=== PATIENT | male | born 2000 | race Caucasian/White ===

== ENCOUNTER 2018-03-29 14:06 | Emergency (ER) | payer SELFPAY ==
[2018-03-29 14:26] VITALS: BP 121/64; PULSE 66; RESP 13; TEMP 36.9; O2SAT 99
--- NOTE | 2018-03-29 15:02 | ED_ITS ---
HPI - Dental/Oral <LAURIE Leonardo - Last Filed: 03/29/18 22:26> General Chief complaint: Dental/Oral Stated complaint: SWELLING AND PAIN IN MOUTH Time Seen by Provider: 03/29/18 15:06 History of Present Illness HPI Narrative: Healthy 17-year-old male here for complaint of pain and redness to his gums along his posterior right lower gum line over the past few days. He denies any trauma to the area. He denies any fevers or chills. He does not have a dentist at this time. He denies any drainage from the area. He is able to open and close mouth without any complications. He has no complications with swallowing or maintaining secretions. No other complaints or concerns. He reports increased pain while eating. He denies any relievers of the pain. Related Data Previous Rx's Medication Instructions Recorded clindamycin HCl 300 mg PO TID #30 cap 03/29/18 hydrocodone-acetaminophen [[place]] 1 tab PO Q6H PRN #10 tab 03/29/18 Review of Systems <LAURIE Leonardo - Last Filed: 03/29/18 22:26> Constitutional Denies chills, Denies fever(s), Denies lethargy and Denies weakness Eyes Denies change in vision, Denies eye discharge, Denies irritation and Denies loss of vision ENT Ears, Nose, Mouth, and Throat: Reports dental pain Cardiovascular Denies chest pain, Denies irregular heart rhythm, Denies lightheadedness, Denies palpitations, Denies dyspnea, Denies dyspnea on exertion and Denies orthopnea Respiratory Denies cough, Denies dyspnea, Denies dyspnea on exertion and Denies wheezing Gastrointestinal Gastrointestinal: Denies abdominal pain, Denies change in bowel habits, Denies diarrhea, Denies nausea and Denies vomiting Genitourinary Denies hematuria, Denies flank pain, Denies urinary incontinence and Denies urinary urgency Musculoskeletal Denies back pain, Denies muscle weakness, Denies numbness and Denies tingling Integumentary/Breasts Denies pruritus, Denies erythema, Denies rash and Denies wounds Neurologic Denies confusion, Denies loss of vision, Denies numbness, Denies tingling and Denies weakness Psychiatric Denies anxiety, Denies confusion, Denies depression, Denies homicidal ideation and Denies suicidal ideation Endocrine Denies palpitations Hematologic/Lymphatic Denies easy bruising Allergic/Immunologic Denies wheezing Exam <LAURIE Leonardo - Last Filed: 03/29/18 22:26> Initial Vital Signs Initial Vital Signs: Vital Signs Temperature 98.4 F 03/29/18 14:26 Pulse Rate 66 03/29/18 14:26 Respiratory Rate 13 03/29/18 14:26 Blood Pressure 121/64 H 03/29/18 14:26 Pulse Oximetry 99 03/29/18 14:26 Const General: cooperative and well developed Nutritional Appearance: well nourished Orientation: alert, awake, oriented x3 and not confused HENMT Mouth: oral mucosae normal and moist mucous membranes Teeth and gingiva: dentition normal and other (Erythema and swelling to the gums to his right lower gums no induration no fluctuance) Eyes Conjunctivae: conjunctivae normal Sclera: sclerae normal Pupils: PERRL EOM: EOM intact bilaterally Resp Effort & Inspection: normal respiratory effort, able to speak in complete sentences, no respiratory distress and no use of accessory muscles Auscultation: clear to auscultation bilaterally, no rales, no rhonchi and no wheezes Cardio Rate: regular rate Rhythm: regular rhythm Heart Sounds: no click, no gallops, no murmurs and no rubs Skin General: no rashes or lesions noted, No jaundice and No petechiae <Timi Johnson DO - Last Filed: 04/01/18 14:05> Initial Vital Signs Initial Vital Signs: Vital Signs Temperature 98.4 F 03/29/18 14:26 Pulse Rate 66 03/29/18 14:26 Respiratory Rate 13 03/29/18 14:26 Blood Pressure 121/64 H 03/29/18 14:26 Pulse Oximetry 99 03/29/18 14:26 Course <LAURIE Leonardo - Last Filed: 03/29/18 22:26> Vital Signs - 8 hr 03/29/18 14:26 Temperature 98.4 F Pulse Rate 66 Respiratory Rate 13 Blood Pressure 121/64 H Pulse Oximetry 99 <Timi Johnson DO - Last Filed: 04/01/18 14:05> Vital Signs - 8 hr 03/29/18 14:26 Temperature 98.4 F Pulse Rate 66 Respiratory Rate 13 Blood Pressure 121/64 H Pulse Oximetry 99 MDM - Dental/Oral <LAURIE Leonardo - Last Filed: 03/29/18 22:26> [facility] Narrative Medical decision making narrative: Signs and symptoms presents as starting dental abscess. He is placed on clindamycin. [id number] ibuprofen as needed for any discomfort. Small amount of [place] is prescribed for breakthrough pain. He is encouraged to follow up with dentist as soon as possible. For any worsening symptoms return to the emergency room. Discharge Plan Departure Patient Disposition: Home, Self-Care Clinical Impression: Dental abscess Discharge Date/Time: 03/29/18 15:31 Interventions: ED Discharge Assessment Last Done: 03/29/18 15:30 Instructions: Tooth Abscess Activity Restrictions/Additional Instructions: Signs and symptoms presents as starting dental infection. You have been prescribed an antibiotic use as directed. Use [id number] ibuprofen as needed for any discomfort. Small amount of [place] is prescribed for breakthrough pain use as directed no driving while on the [place]. Follow up with dentist soon for further evaluation and treatment. For any worsening symptoms return to the emergency room. Prescriptions: New clindamycin HCl 300 mg capsule 300 mg PO TID Qty: 30 RF: 0 hydrocodone-acetaminophen [[place]] 5-325 mg tablet 1 tab PO Q6H PRN (Reason: pain) Qty: 10 RF: 0 <Timi Johnson DO - Last Filed: 04/01/18 14:05> [facility] ED Attending Fredy Attestation: I was immediately available in the department for consultation. This documentation has been reviewed and I agree with assessment and plan. Supervised by Timi Johnson DO
== END 2018-03-29 15:31 | disposition home or self-care (01) ==
PROVIDERS: Emergency Provider Nurse Practitioner Family
DX: K04.7 Periapical abscess without sinus (principal)
CPT/HCPCS: 99282